=== PATIENT | male | born 1995 | race Caucasian/White ===

== ENCOUNTER 2016-11-17 18:37 | Emergency (ER) | payer OTHER ==
[2016-11-17 18:43] VITALS: BP 121/76; PULSE 88; RESP 16; TEMP 98.4; O2SAT 96
--- NOTE | 2016-11-17 18:51 | EDPHY ---
H & P Stated Complaint: Injury to R little toe today; ambulatory HPI/ROS: Chief complaint: Right little toe injury History of present illness: This is a 21-year-old male who presents to the emergency department for right little toe injury. Patient stubbed his toe today while playing volleyball. He has noted pain and bruising. It hurts to move. No report of open wounds. No report of paresthesias or abnormal coolness in the toe. No other injuries reported. - Personal History Current Tetanus Diphtheria and Acellular Pertussis (TDAP): Yes - Medical/Surgical History Other PMH: healthy - Social History Smoking Status: Never smoked - Physical Exam Exam: General: Alert, nontoxic Skin: Contusion to the right 5th toe, no open wounds. Musculoskeletal: Tenderness to the right 5th toe, he can flex and extend it. Vascular: Capillary refill brisk in the right 5th toe. Neurologic: Sensation intact in the right 5th toe. Constitutional: Initial Vital Signs Temperature (C) 36.9 C 11/17/16 18:39 Heart Rate 88 11/17/16 18:39 Respiratory Rate 16 11/17/16 18:39 Blood Pressure 121/76 H 11/17/16 18:39 O2 Sat (%) 96 11/17/16 18:39 O2 Delivery Mode Room Air Allergies/Adverse Reactions: emycin Allergy (Mild, Uncoded 11/17/16 18:43) nausea Home Medications: Medication Instructions Recorded NK [No Known Home Meds] 11/17/16 Medical Decision Making - Diagnostics Imaging Results: Imaging Impressions Toe X-Ray 11/17/16 18:43 Impression: No evidence for acute osseous abnormality. Imaging: I viewed and interpreted images myself ED Course/Re-evaluation: Patient seen under the supervision of my secondary supervising physician Dr. Jp Carter. Patient presents to the emergency department for a right 5th toe injury. The toe is neurovascularly intact. He has good musculoskeletal control of it. X-rays are negative. Patient is discharged home. Home care is discussed. Return precautions are given. Differential Diagnosis: Included but not limited to contusion, sprain or strain, bony fracture, joint dislocation Departure - Departure Disposition: Home, Routine, Self-Care Clinical Impression: Toe contusion Qualifiers: Encounter type: initial encounter Toe: lesser toe Damage to nail status: without damage Laterality: right Qualified Code(s): S90.121A - Contusion of right lesser toe(s) without damage to nail, initial encounter Condition: Good Instructions: Contusion in Adults (ED) Additional Instructions: Follow-up with your primary care doctor for recheck You can use [id number] ibuprofen as directed as needed for pain If symptoms worsen or new symptoms develop return to the emergency room for recheck Referrals: HENRIQUE MARIE [Other] - As per Instructions
== END 2016-11-17 19:21 | disposition home or self-care (01) ==
DX: S90.121A Contusion of right lesser toe(s) without damage to nail, initial encounter (principal); W22.8XXA Striking against or struck by other objects, initial encounter; Y92.89 Other specified places as the place of occurrence of the external cause; Y93.68 Activity, volleyball (beach) (court)